=== PATIENT | male | born 1995 | race Caucasian/White ===

== ENCOUNTER 2019-09-19 11:17 | Inpatient (IN) ==
[2019-09-19] MEDS ORDERED: DECADRON IM ONE (12:30)
[2019-09-19] MEDS ORDERED: TORADOL IM ONE (12:30)
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
[2019-09-19 14:40] LABS: BASO# 0.03 X1000 (0.0-0.2); BASO% 0.2 % (0.0-0.8); EOS# 0.02 X1000 (0.0-0.7); EOS% 0.2 % (0.0-10.0); HEMATOCRIT 45.1 % (42.0-52.0); HEMOGLOBIN 14.9 g/dL (14.0-18.0); IMM GRAN# 0.05 X1000 (0.0-0.04); IMM GRAN% 0.4 % (0.0-0.5); LYMPH# 0.85 X1000 (1.2-3.4); LYMPH% 6.7 % (20.5-51.1); MCH 27.1 PG (27-31); MONO# 0.63 X1000 (0.11-0.59); MPV 9.5 FL (7.4-10.4); NEUT# 11.12 X1000 (1.4-6.5); NEUT% 87.5 % (42.2-75.2); PLT 296 X1000 (130-400); RDW 13.1 % (11.5-14.5)
[2019-09-19 15:01] LABS: FREE T4 1.19 ng/dL (0.93-1.70); TSH 1.36 uIUmL (0.27-4.20)
[2019-09-19 15:18] LABS: UR AMPHETAMINES QUAL NONE DETECTED (NONE DETECT); UR BARBITUATES QUAL NONE DETECTED (NONE DETECT); UR BENZODIAZEPIN QUAL NONE DETECTED (NONE DETECT); UR CANNABINOIDS QUAL NONE DETECTED (NONE DETECT); UR COCAINE QUAL NONE DETECTED (NONE DETECT); UR METHADONE QUAL NONE DETECTED (NONE DETECT); UR METHAMPHETAMINE QUAL NONE DETECTED (NONE DETECT); UR OPIATES QUAL NONE DETECTED (NONE DETECT); UR OXYCODONE QUAL NONE DETECTED (NONE DETECT); UR PCP QUAL NONE DETECTED (NONE DETECT); UR PROPOXYPHENE QUAL NONE DETECTED (NONE DETECT); UR TCA QUAL NONE DETECTED (NONE DETECT)
[2019-09-19 15:20] LABS: AGAP 14; ALBUMIN 4.9 g/dL (3.5-5.0); ALKALINE PHOSPHATASE 84 U/L (32-122); BUN 12 mg/dL (8-22); CALCIUM 9.7 mg/dL (8.8-10.2); CHLORIDE 103 mmol/L (98-107); COSMO 282; ESTIMATED GFR > 60; GLUCOSE 115 mg/dL (70-104); GOT 22 U/L (10-34); GPT 31 U/L (10-44); POTASSIUM 4.8 mmol/L (3.5-5.1); SODIUM 141 mmol/L (136-145); TCO2 24 mmol/L (25-35); TOTAL PROTEIN 7.1 g/dL (6.3-8.3)
[2019-09-19] MEDS ORDERED: ZOFRAN IV PRN (15:50)
--- NOTE | 2019-09-19 16:22 | EKG Report ---
Test Performed on : 09/19/2019 2:32:04 PM Test Reason : CP Blood Pressure : / mmHG Vent. Rate : 078 BPM Atrial Rate : 078 BPM P-R Int : 148 ms QRS Dur : 116 ms QT Int : 388 ms P-R-T Axes : 068 -02 046 degrees QTc Int : 442 ms Normal sinus rhythm. Nonspecific ST and T wave abnormality Abnormal ECG When compared with ECG of 30-NOV-2010 22:06, PREVIOUS ECG IS PRESENT Unconfirmed Result
[2019-09-19] MEDS ORDERED: TORADOL PO PRN (17:37)
[2019-09-19] MEDS ORDERED: TYLENOL PO PRN (18:13)
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
[2019-09-20 13:36] LABS: BASO# 0.01 X1000 (0.0-0.2); EOS# 0.02 X1000 (0.0-0.7); EOS% 0.1 % (0.0-10.0); HEMATOCRIT 42.8 % (42.0-52.0); HEMOGLOBIN 14.1 g/dL (14.0-18.0); IMM GRAN# 0.05 X1000 (0.0-0.04); IMM GRAN% 0.2 % (0.0-0.5); LYMPH# 1.56 X1000 (1.2-3.4); LYMPH% 7.2 % (20.5-51.1); MCH 27.3 PG (27-31); MCHC 32.9 g/dL (33-37); MCV 82.9 FL (81-99); MONO# 1.39 X1000 (0.11-0.59); MONO% 6.4 % (1.7-9.3); MPV 9.6 FL (7.4-10.4); NEUT# 18.63 X1000 (1.4-6.5); NEUT% 86.1 % (42.2-75.2); PLT 323 X1000 (130-400); RBC 5.16 XMIL (4.7-6.1); RDW 13.1 % (11.5-14.5); WBC 21.66 X1000 (4.8-10.8)
[2019-09-20 13:54] LABS: AGAP 11; ALBUMIN 4.5 g/dL (3.5-5.0); ALKALINE PHOSPHATASE 81 U/L (32-122); BUN 16 mg/dL (8-22); CALCIUM 9.9 mg/dL (8.8-10.2); CHLORIDE 101 mmol/L (98-107); COSMO 281; ESTIMATED GFR > 60; GLUCOSE 136 mg/dL (70-104); GOT 16 U/L (10-34); GPT 25 U/L (10-44); MAGNESIUM 1.7 mg/dL (1.5-2.7); POTASSIUM 4.1 mmol/L (3.5-5.1); SODIUM 139 mmol/L (136-145); TCO2 27 mmol/L (25-35)
[2019-09-20 14:57] LABS: ANISOCYTOSIS 1+; BANDS 1 % (0-1); LYMPHS 11 % (21-51); MONO 5 % (1-9); SEGS 83 % (42-75)
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
[2019-09-21 07:46] VITALS: BP 122/63
[2019-09-21 07:49] LABS: HEMATOCRIT 43.8 % (42.0-52.0); MCH 27.1 PG (27-31); MCV 84.7 FL (81-99); MPV 9.4 FL (7.4-10.4); RBC 5.17 XMIL (4.7-6.1); RDW 13.3 % (11.5-14.5); WBC 10.4 X1000 (4.8-10.8)
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
--- NOTE | 2019-09-26 22:54 | ECHO REPORT ---
ORDER DATE: 09/20/2019 INDICATION: Syncope. FINDINGS: 1. The right atrium is mildly enlarged at 4.1 cm. 2. Mild tricuspid regurgitation. RV systolic pressure 27. 3. Normal RV size and systolic function. 4. Mild pulmonic insufficiency. 5. Normal left atrial size, with a dimension volume index of 18. 6. No mitral valve prolapse. Mild mitral regurgitation. No mitral stenosis. 7. Normal LV size, end-diastolic dimension of 5 cm. Normal wall thicknesses with a posterior and interventricular septal wall thickness of 0.9 cm each. Normal LV systolic function. Estimated ejection fraction of 55% with normal wall motion. 8. The aortic valve opens well. It is trileaflet. No evidence of stenosis or insufficiency. 9. The aorta appears normal in visualized segments. 10. No pericardial effusion seen. 11. There was a positive bubble study suggestive of a small PFO. cc: MD Barb Oakley CRNP MTDD
== END 2019-09-21 12:45 | disposition home or self-care (01) | DRG 312 ==
LOC: P.ED 11:17 → P.MEDSURG 16:24
PROVIDERS: ATTEND Family Medicine